=== PATIENT | female | born 1965 | race Caucasian/White ===

== ENCOUNTER 2018-05-15 17:03 | Emergency (ER) | payer BC | END 2018-05-15 20:20 | disposition home or self-care (01) | LOC: FTE 17:03 | DX: S22.42XA Multiple fractures of ribs, left side, initial encounter for closed fracture (principal); W22.09XA Striking against other stationary object, initial encounter; Y92.34 Swimming pool (public) as the place of occurrence of the external cause | CPT/HCPCS: 71100; 99283-25 ==